=== PATIENT | female | born 1985 | race Two or more races ===

== ENCOUNTER 2018-07-22 23:06 | Emergency (ER) | payer OTHER ==
[~2018-07-22] VITALS: Ht 162.6 cm; Wt 54.4 kg
[2018-07-22 23:34] VITALS: BP 118/71
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
[2018-07-22] MEDS ORDERED: CARISOPRODOL 350 MG TABLET ONE (23:39)
[2018-07-22] MEDS ORDERED: IBUPROFEN 400 MG TABLET ONE (23:39)
[2018-07-23] MEDS ORDERED: CARISOPRODOL 350 MG TABLET PO ONE
[2018-07-23] MEDS ORDERED: IBUPROFEN 400 MG TABLET PO ONE
== END 2018-07-22 23:51 | disposition home or self-care (01) ==
LOC: ER 23:13
DX: M62.838 Other muscle spasm (principal); F17.210 Nicotine dependence, cigarettes, uncomplicated

== ENCOUNTER 2018-11-22 21:05 | Emergency (ER) | payer MEDICAID, OTHER ==
[~2018-11-22] VITALS: Ht 160 cm; Wt 56.7 kg
--- NOTE | 2018-11-22 22:00 | NUR ---
BIBS FOR C/O LOWER BACK PAIN X 3 DAYS. - HEMATURIA, - DYSURIA. - INJURY, VSS. WILL CONT TO MONITOR ,
--- NOTE | 2018-11-22 22:10 | NUR ---
URINE COLLECTED AND SENT TO THE LAB
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
[2018-11-22] MEDS ORDERED: ACETAMINOPHEN 325 MG TABLET ONE (22:18)
[2018-11-22] MEDS ORDERED: CYCLOBENZAPRINE 10 MG TABLET ONE (22:18)
[2018-11-22 22:19] LABS: APPEARANCE,URINE Clear (CLEAR); BILIRUBIN,URINE Negative (NEGATIVE); BLOOD, URINE Trace-lysed Ery/uL (NEGATIVE); COLOR,URINE Yellow (YELLOW); KETONES,URINE Negative (NEGATIVE); LEUKOCYTE ESTERASE ,URINE Small (NEGATIVE); NITRITE, URINE Negative (NEGATIVE); PH,URINE 5.5 (5.0-8.0); PROTEIN,URINE 30 mg/dl (NEGATIVE); UGLUCOSE Negative (NEGATIVE); UROBILINOGEN,URINE 0.2 EU/dL (0.2)
[2018-11-22] MEDS: CYCLOBENZAPRINE 10 MG TABLET PO ONE (22:20)
[2018-11-22] MEDS: ACETAMINOPHEN 325 MG TABLET PO ONE (22:20)
[2018-11-22] MEDS: KETOROLAC TROMETHAMINE INJ 60 MG/2 ML VIAL IM ONE (22:23)
[2018-11-22 22:43] LABS: BACTERIA,URINE Few /HPF (None Seen); SQUAMOUS EPITHELIAL CELL,UR Few /HPF (None Seen)
--- NOTE | 2018-11-22 23:03 | NUR ---
Patient discharged to home in stable condition. RX and Written and verbal after care instructions given. Patient verbalizes understanding of instruction.
[2018-11-22 23:37] VITALS: BP 103/64
== END 2018-11-22 23:03 | disposition home or self-care (01) ==
LOC: ER 21:10
DX: M62.830 Muscle spasm of back (principal); F17.210 Nicotine dependence, cigarettes, uncomplicated
CPT/HCPCS: 81000-TC; 84703-TC

== ENCOUNTER 2019-04-30 09:56 | Emergency (ER) | payer MEDICAID ==
[~2019-04-30] VITALS: Ht 160 cm; Wt 56.7 kg
[2019-04-30 10:04] VITALS: BP 117/83
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
--- NOTE | 2019-04-30 10:20 | NUR ---
urine collected and sent to lab
[2019-04-30] MEDS ORDERED: IBUPROFEN 600 MG TABLET PO ONE ×2 (10:30→10:43)
== END 2019-04-30 11:57 | disposition home or self-care (01) ==
LOC: ER 09:57
DX: S16.1XXA Strain of muscle, fascia and tendon at neck level, initial encounter (principal); S33.5XXA Sprain of ligaments of lumbar spine, initial encounter; S23.3XXA Sprain of ligaments of thoracic spine, initial encounter; S20.219A Contusion of unspecified front wall of thorax, initial encounter; F17.210 Nicotine dependence, cigarettes, uncomplicated; V49.49XA Driver injured in collision with other motor vehicles in traffic accident, initial encounter; Y93.89 Activity, other specified; Y92.413 State road as the place of occurrence of the external cause; Y99.8 Other external cause status
CPT/HCPCS: 71045-TC; 72050-TC; 72080-TC; 72100-TC

== ENCOUNTER 2019-06-18 20:39 | Emergency (ER) | payer MEDICAID ==
[~2019-06-18] VITALS: Ht 160 cm; Wt 55.3 kg
[2019-06-18 20:56] VITALS: BP 121/74
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
--- NOTE | 2019-06-18 21:11 | NUR ---
SEEN AND EXAMINED BY
[2019-06-18] MEDS ORDERED: diphenhydrAMINE HCL 25 MG CAPSULE ONE ×2 (21:13→21:25)
--- NOTE | 2019-06-18 21:27 | NUR ---
Patient discharged to home in stable condition. Written and verbal after care instructions given. Patient verbalizes understanding of instruction. Pt ambulatory with a steady gait
[2019-06-18] MEDS ORDERED: diphenhydrAMINE HCL 25 MG CAPSULE PO ONE (21:30)
== END 2019-06-18 21:33 | disposition home or self-care (01) ==
LOC: ER 20:40
DX: J32.9 Chronic sinusitis, unspecified (principal); M54.41 Lumbago with sciatica, right side; F10.10 Alcohol abuse, uncomplicated; F17.210 Nicotine dependence, cigarettes, uncomplicated; Y90.9 Presence of alcohol in blood, level not specified
CPT/HCPCS: 99283; Q0163

== ENCOUNTER 2019-10-08 10:44 | Emergency (ER) | payer MEDICAID ==
[~2019-10-08] VITALS: Ht 162.6 cm; Wt 56.7 kg
[2019-10-08] MEDS ORDERED: DEXAMETHASONE SOD PHOSPHATE 10 MG/ML VIAL ONE (11:12)
[2019-10-08] MEDS ORDERED: KETOROLAC TROMETHAMINE INJ 30 MG/ML VIAL ONE (11:12)
[2019-10-08] MEDS ORDERED: ONDANSETRON HCL/PF 4 MG/2 ML VIAL ONE (11:12)
[2019-10-08] MEDS ORDERED: PENICILLIN G BENZATHINE 2.4 MMU/4 ML ML IM ONE ×2 (11:13→11:30)
[2019-10-08] MEDS ORDERED: IV NS 0.9% 1,000 ML BAG IV ONE (11:30)
[2019-10-08] MEDS ORDERED: KETOROLAC TROMETHAMINE INJ 30 MG/ML VIAL IV ONE (11:30)
[2019-10-08] MEDS ORDERED: DEXAMETHASONE SOD PHOSPHATE 10 MG/ML VIAL IV ONE (11:30)
[2019-10-08] MEDS ORDERED: CEFTRIAXONE 1GM BAG (ER ONLY) 50 ML IV ONE (11:30)
[2019-10-08] MEDS ORDERED: ONDANSETRON HCL/PF 4 MG/2 ML VIAL IVP ONE (11:30)
[2019-10-08 11:35] LABS: APPEARANCE,URINE Turbid (CLEAR); BILIRUBIN,URINE MODERATE (NEGATIVE); BLOOD, URINE Negative Ery/uL (NEGATIVE); COLOR,URINE Dark (YELLOW); KETONES,URINE >=160 (NEGATIVE); LEUKOCYTE ESTERASE ,URINE Negative (NEGATIVE); NITRITE, URINE Negative (NEGATIVE); PROTEIN,URINE 100 mg/dl (NEGATIVE); UGLUCOSE 100 MG/DL mg/dL (NEGATIVE)
[2019-10-08 11:44] LABS: BACTERIA,URINE Few /HPF (None Seen); RBC,URINE 0-2 /HPF (0-2); SQUAMOUS EPITHELIAL CELL,UR Few /HPF (None Seen); WBC,URINE 0-2 /HPF (0-3)
[2019-10-08 11:51] LABS: BASOPHILS % (AUTO) 0.6 % (0.0-2.0); EOSINOPHILS % (AUTO) 0.1 % (0.0-6.0); HEMATOCRIT 38 % (33-45); HEMOGLOBIN 13.3 g/dL (11.5-14.8); LYMPHOCYTES # (AUTO) 0.9 /CMM (0.8-4.8); LYMPHOCYTES % (AUTO) 14.2 % (20.0-44.0); MEAN CORPUSCULAR HGB CONC 35 g/dl (31.0-36.0); MEAN CORPUSCULAR VOLUME 82 fL (82-100); MONOCYTES # (AUTO) 0.6 /CMM (0.1-1.30); MONOCYTES % (AUTO) 9.1 % (2.0-12.0); PLATELET COUNT (AUTO) 159 /CMM (150-450); RED BLOOD CELL COUNT(AUTO) 4.64 MIL/uL (4.0-5.2); WHITE BLOOD COUNT (AUTO) 6.6 K/uL (4.3-11.0)
[2019-10-08 11:59] LABS: CREATININE 0.8 mg/dL (0.6-1.3); POTASSIUM 3.5 mmol/L (3.5-5.1)
[2019-10-08 12:04] LABS: ALBUMIN 3.7 g/dL (3.4-5.0); BILIRUBIN,DIRECT 0.2 mg/dL (0.0-0.2); BILIRUBIN,TOTAL 0.7 mg/dL (0.2-1.0); TOTAL PROTEIN, SERUM 7.5 g/dL (6.4-8.2)
--- NOTE | 2019-10-08 12:11 | NUR ---
FEVER/SORETHROAT/VOMITING/BODY ACHES X 3 DAYS. PT AAOX4, VSS. DENIES CP, SOB, DIZZINESS, DIARRHEA @ THIS TIME. PT SEEN & EVAL'D BY DR. MCBRIDE. MEDICATED ORDERED, PT NAN WELL. PT REFUSED TO BE TESTED FOR COVID 19, DR. MCBRIDE AWARE.
--- NOTE | 2019-10-08 12:40 | NUR ---
Patient discharged to home in stable condition. Written and verbal after care instructions given. Patient verbalizes understanding of instruction.IV removed. Catheter intact and site benign. Pressure and 4x4 applied to site. No bleeding noted. PT & INSTRUCTED TO SELF QUARANTINE SELF FOR 14 DAYS. SEE MD/ RETURN TO ED FOR CP, SOB OR CONDITION WORSEN, PT & ACKNOWLEDGED WITH VERBAL UNDERSTANDING.
[2019-10-08 12:41] VITALS: BP 118/74
== END 2019-10-08 12:42 | disposition home or self-care (01) ==
LOC: ER 10:46
DX: J02.9 Acute pharyngitis, unspecified (principal); R50.9 Fever, unspecified; M79.18 Myalgia, other site; R11.2 Nausea with vomiting, unspecified; R59.0 Localized enlarged lymph nodes; R51 Headache; F17.210 Nicotine dependence, cigarettes, uncomplicated
CPT/HCPCS: 36415; 80048; 80076; 81001; 84703; 85025; 96361; 96372; 96374; 96375; 99284; J0558; J1100; J1885; J2405; J7030; 81000-TC

== ENCOUNTER 2022-02-03 09:37 | Emergency (ER) | payer MEDICAID ==
[~2022-02-03] VITALS: Ht 162.6 cm; Wt 59.0 kg
[2022-02-03 09:44] VITALS: BP 108/57
[2022-02-03] MEDS ORDERED: CETI1TAB9 PO (09:49)
[2022-02-03] MEDS ORDERED: IBUP-1953 PO (09:49)
== END 2022-02-03 10:06 | disposition home or self-care (01) ==
LOC: ER 09:40
DX: J06.9 Acute upper respiratory infection, unspecified (principal); M54.50 Low back pain, unspecified; F17.200 Nicotine dependence, unspecified, uncomplicated; Z79.899 Other long term (current) drug therapy

== ENCOUNTER 2022-07-13 16:01 | Emergency (ER) | payer MEDICAID ==
[~2022-07-13] VITALS: Ht 162.6 cm; Wt 59.0 kg
[~2022-07-13 16:01] MED LIST: CETI1TAB9 PO; IBUP-1953 PO
[2022-07-13] MEDS: IV NS 0.9% 1,000 ML BAG IV ONE ×2 (16:30→17:06)
[2022-07-13] MEDS: MORPHINE SULFATE INJ 2 MG/ML DISP.SYRIN IV ONE ×2 (16:30→17:11)
--- NOTE | 2022-07-13 16:30 | NUR ---
Patient c/c abd pain intermittent x 5d, increase upon palpation of RUQ. A/O x 3
--- NOTE | 2022-07-13 16:40 | NUR ---
URINE SAMPLE COLLECTED
[2022-07-13 16:46] LABS: BASOPHILS % (AUTO) 0.7 % (0.0-2.0); HEMATOCRIT 41 % (33-45); LYMPHOCYTES % (AUTO) 33.4 % (20.0-44.0); MEAN CORPUSCULAR HGB CONC 34 g/dl (31.0-36.0); MEAN CORPUSCULAR VOLUME 83 fL (82-100); MONOCYTES # (AUTO) 0.5 K/uL (0.1-1.30); NEUTROPHILS % (AUTO) 49.9 % (43.0-81.0); PLATELET COUNT (AUTO) 254 K/uL (150-450); RED BLOOD CELL COUNT(AUTO) 4.95 MIL/uL (4.0-5.2); WHITE BLOOD COUNT (AUTO) 6.1 K/uL (4.3-11.0)
[2022-07-13 16:58] LABS: CALCIUM, SERUM 8.7 mg/dL (8.5-10.1); CREATININE 0.7 mg/dL (0.6-1.3); POTASSIUM 3.8 mmol/L (3.5-5.1)
[2022-07-13 17:03] LABS: ALBUMIN 3.8 g/dL (3.4-5.0); BILIRUBIN,DIRECT 0.2 mg/dL (0.0-0.2); BILIRUBIN,TOTAL 0.5 mg/dL (0.2-1.0); TOTAL PROTEIN, SERUM 7.2 g/dL (6.4-8.2)
[2022-07-13] MEDS ORDERED: MORPHINE SULFATE INJ 2 MG/ML DISP.SYRIN ONE (17:07)
[2022-07-13 17:22] LABS: COLOR,URINE YELLOW (YELLOW)
[2022-07-13 17:23] LABS: BILIRUBIN,URINE NEGATIVE (NEGATIVE); NITRITE, URINE NEGATIVE (NEGATIVE); PROTEIN,URINE 2+ mg/dl (NEGATIVE); UGLUCOSE NEGATIVE (NEGATIVE); UROBILINOGEN,URINE 0.2 EU/dL (0.2)
[2022-07-13 17:24] LABS: LEUKOCYTE ESTERASE ,URINE 2+ (NEGATIVE)
[2022-07-13 17:27] LABS: BACTERIA,URINE 2+ /HPF (None Seen); RBC,URINE 51-80 /HPF (0-2); WBC,URINE 21-50 /HPF (0-3)
[2022-07-13] MEDS ORDERED: IV NS 0.9% 250 ML IV ONE (17:56)
[2022-07-13] MEDS ORDERED: IOHEXOL-300 100 ML VIAL IV ONE (17:56)
[2022-07-13] MEDS ORDERED: KETOROLAC TROMETHAMINE INJ 30 MG/ML VIAL ONE (19:28)
[2022-07-13] MEDS ORDERED: KETOROLAC TROMETHAMINE INJ 30 MG/ML VIAL IV ONE (19:30)
[2022-07-13] MEDS ORDERED: CIPR-262 PO (20:23)
[2022-07-13] MEDS ORDERED: CIPROFLOXACIN HCL 500 MG TABLET PO ONE (20:30)
--- NOTE | 2022-07-13 20:45 | NUR ---
Patient discharged to home in stable condition. Written and verbal after care instructions given. Patient verbalizes understanding of instruction.Pt.ambulatory with a steady gait
[2022-07-13 20:48] VITALS: BP 100/72
== END 2022-07-13 20:45 | disposition home or self-care (01) ==
LOC: ER 16:06
DX: N39.0 Urinary tract infection, site not specified (principal); F17.200 Nicotine dependence, unspecified, uncomplicated; Z79.899 Other long term (current) drug therapy
CPT/HCPCS: 99285; 74177; 96374; 96375; 85025; 80048; 87086; 83690; 80076; 84703; 81001; 36415; 84702; J1885; J7030; J7050; J2270; Q9967

== ENCOUNTER 2022-10-15 14:49 | Emergency (ER) | payer MEDICAID ==
[~2022-10-15] VITALS: Ht 162.6 cm; Wt 58.1 kg
[~2022-10-15 14:49] MED LIST changes: +CIPR-262 PO
--- NOTE | 2022-10-15 14:54 | NUR ---
WORSENING HEADACHE X 4 DAYS. VITALS ARE WITHIN NORMAL LIMITS. AWAITING NORMAL LIMITS.
[2022-10-15] MEDS ORDERED: diphenhydrAMINE HCL 25 MG CAPSULE ONE (15:27)
[2022-10-15] MEDS ORDERED: IBUPROFEN 400 MG TABLET ONE (15:27)
[2022-10-15] MEDS ORDERED: METOCLOPRAMIDE HCL 10 MG TABLET ONE (15:27)
[2022-10-15] MEDS ORDERED: METOCLOPRAMIDE HCL 10 MG TABLET PO ONE (15:30)
[2022-10-15] MEDS ORDERED: IBUPROFEN 400 MG TABLET PO ONE (15:30)
[2022-10-15] MEDS ORDERED: DIPHENHYDRAMINE HCL 12.5 MG/5 ML UDC PO ONE (15:30)
[2022-10-15] MEDS ORDERED: TYL2T PO (15:48)
[2022-10-15 15:52] VITALS: BP 121/66
--- NOTE | 2022-10-15 15:52 | NUR ---
Patient discharged to home in stable condition. Written and verbal after care instructions given. Patient verbalizes understanding of instruction.
== END 2022-10-15 15:52 | disposition home or self-care (01) ==
LOC: ER 14:50
DX: R51.9 Headache, unspecified (principal); F17.200 Nicotine dependence, unspecified, uncomplicated
CPT/HCPCS: 99284; Q0163 ×2; J8597

== ENCOUNTER → 2022-12-25 | Emergency (ER) | payer MEDICAID ==
[~2022-12-25] MED LIST changes: +TYL2T PO
== END | disposition home or self-care (01) ==
LOC: ER 16:48
DX: Z53.21 Procedure and treatment not carried out due to patient leaving prior to being seen by health care provider (principal)

== ENCOUNTER 2023-04-30 15:12 | Emergency (ER) | payer MEDICAID ==
[~2023-04-30] VITALS: Ht 162.6 cm; Wt 59.9 kg
[2023-04-30] MEDS ORDERED: diphenhydrAMINE HCL 50 MG CAPSULE ONE (16:00)
[2023-04-30] MEDS ORDERED: IBUPROFEN 400 MG TABLET PO ONE (16:00)
[2023-04-30] MEDS ORDERED: diphenhydrAMINE HCL 50 MG CAPSULE PO ONE (16:00)
[2023-04-30] MEDS ORDERED: IBUPROFEN 400 MG TABLET ONE (16:00)
[2023-04-30] MEDS ORDERED: IBUP800T54 PO (16:05)
[2023-04-30 16:08] VITALS: BP 114/78; TEMP 98; O2SAT 100
== END 2023-04-30 16:09 | disposition home or self-care (01) ==
LOC: ER 15:15
DX: B34.9 Viral infection, unspecified (principal)
CPT/HCPCS: 99283; Q0163

== ENCOUNTER 2023-12-24 15:55 | Emergency (ER) | payer MEDICAID ==
[~2023-12-24 15:55] MED LIST changes: +IBUP800T54 PO
== END 2023-12-24 20:00 | disposition left against medical advice (07) ==
LOC: ER 19:00
DX: M25.569 Pain in unspecified knee (principal); R06.02 Shortness of breath; Z53.21 Procedure and treatment not carried out due to patient leaving prior to being seen by health care provider

== ENCOUNTER 2023-12-30 07:53 | Emergency (ER) | payer MEDICAID ==
[~2023-12-30] VITALS: Ht 157.5 cm; Wt 59.0 kg
[2023-12-30] MEDS: IV NS 0.9% 1,000 ML BAG IV ONE (08:13)
[2023-12-30] MEDS ORDERED: ONDANSETRON HCL/PF 4 MG/2 ML VIAL ONE (08:15)
[2023-12-30] MEDS ORDERED: DICYCLOMINE HCL INJ 20 MG/2 ML AMPUL IM ONE (08:15)
[2023-12-30] MEDS ORDERED: DICY10CA37 PO (08:21)
[2023-12-30] MEDS ORDERED: ONDA4TAB5 PO (08:21)
[2023-12-30 08:23] LABS: BASOPHILS % (AUTO) 0.7 % (0.0-2.0); EOSINOPHILS # (AUTO) 0.3 K/uL (0.0-0.7); EOSINOPHILS % (AUTO) 4.6 % (0.0-6.0); HEMATOCRIT 41 % (33-45); LYMPHOCYTES # (AUTO) 2.7 K/uL (0.8-4.8); MEAN CORPUSCULAR HEMOGLOBIN 29 PG (26.0-33.0); MEAN CORPUSCULAR HGB CONC 34 g/dl (31.0-36.0); MEAN CORPUSCULAR VOLUME 83 fL (82-100); MONOCYTES # (AUTO) 0.4 K/uL (0.1-1.30); NEUTROPHILS % (AUTO) 46.7 % (43.0-81.0); PLATELET COUNT (AUTO) 197 K/uL (150-450); RED CELL DISTRIBUTION WIDTH 12.7 % (11.5-15.0); WHITE BLOOD COUNT (AUTO) 6.5 K/uL (4.3-11.0)
[2023-12-30] MEDS: DICYCLOMINE HCL INJ 20 MG/2 ML AMPUL IM ONE (08:30)
[2023-12-30] MEDS: ONDANSETRON HCL/PF 4 MG/2 ML VIAL IV ONE (08:35)
[2023-12-30 08:40] LABS: ALBUMIN 3.4 g/dL (3.4-5.0); BILIRUBIN,DIRECT 0.1 mg/dL (0.0-0.2); BILIRUBIN,TOTAL 0.5 mg/dL (0.2-1.0); CALCIUM, SERUM 8.2 mg/dL (8.5-10.1); CREATININE 0.7 mg/dL (0.6-1.3); POTASSIUM 3.8 mmol/L (3.5-5.1)
[2023-12-30 08:57] LABS: PREGNANCY TEST URINE QUAL NEGATIVE (NEGATIVE)
[2023-12-30 08:59] LABS: APPEARANCE,URINE SLIGHTLY CLOUDY (CLEAR); BILIRUBIN,URINE 1+ (NEGATIVE); BLOOD, URINE NEGATIVE Ery/uL (NEGATIVE); COLOR,URINE YELLOW (YELLOW); KETONES,URINE NEGATIVE (NEGATIVE); LEUKOCYTE ESTERASE ,URINE 1+ (NEGATIVE); NITRITE, URINE NEGATIVE (NEGATIVE); PROTEIN,URINE TRACE mg/dl (NEGATIVE); UGLUCOSE NEGATIVE (NEGATIVE); UROBILINOGEN,URINE 0.2 EU/dL (0.2)
[2023-12-30 09:01] LABS: ADD URINE CULTURE YES; BACTERIA,URINE Few /HPF (None Seen); SQUAMOUS EPITHELIAL CELL,UR Rare /HPF (None Seen)
[2023-12-30] MEDS ORDERED: MORPHINE SULFATE INJ 4 MG/ML DISP.SYRIN ONE (09:37)
[2023-12-30] MEDS: MORPHINE SULFATE INJ 2 MG/ML DISP.SYRIN IV ONE (10:04)
[2023-12-30 10:45] VITALS: BP 113/69; TEMP 98.2; O2SAT 99
[2023-12-30] MEDS ORDERED: CEFD300C3 PO (10:51)
== END 2023-12-30 10:58 | disposition home or self-care (01) ==
LOC: ER 07:56
DX: N39.0 Urinary tract infection, site not specified (principal); R10.9 Unspecified abdominal pain; R11.2 Nausea with vomiting, unspecified; R19.7 Diarrhea, unspecified; F17.210 Nicotine dependence, cigarettes, uncomplicated; Z88.8 Allergy status to other drugs, medicaments and biological substances
CPT/HCPCS: 99284; 96374; 96361; 96375; 85025; 80048; 83690; 80076; 84703; 81001; 36415; 96372; J2270; J2405; J7030; J0500